=== PATIENT | male | born 1960 | race Caucasian/White ===

== ENCOUNTER 2017-08-20 06:24 | Day surgery (SDC) | payer BC ==
[~2017-08-20 06:24] MED LIST: Buffered Lidocaine 0.9% SYRIN* 5 ML/SYR SYRINGE INTRADERM ONE
[2017-08-20] MEDS ORDERED: ceFAZolin 2 GM in 100 MLS NS (*) BAG IVPB ONE (07:06)
[2017-08-20] MEDS ORDERED: Mineral Oil Sterile, TOPICAL* 25 ML BTL ONE (07:10)
[2017-08-20] MEDS ORDERED: Lidocaine 1% MPF wEPI 200,000* 30 ML SDV ONE (07:10)
[2017-08-20] MEDS ORDERED: Bupivacaine 0.25% SDV* 30 ML ONE (07:22)
[2017-08-20] MEDS ORDERED: fentaNYL* 50 MCG/ML 2 ML VIAL (100 MCG VIAL) ONE (07:35)
[2017-08-20] MEDS ORDERED: Midazolam* 1 MG/ML 5 ML VIAL (5 MG) ONE (07:35)
[2017-08-20] MEDS ORDERED: Propofol* 10 MG/ML 20 ML BTL IV PUSH ONE (07:50)
[2017-08-20] MEDS ORDERED: Lidocaine 2% PF * 5 ML VIAL ONE (07:58)
[2017-08-20] MEDS ORDERED: Naloxone* 0.4 MG/ML 1 ML VIAL IV PRN (08:25)
[2017-08-20] MEDS ORDERED: Midazolam* 1 MG/ML 2 ML VIAL (2 MG) ONE (08:30)
[2017-08-20] MEDS ORDERED: Acetaminophen TAB* 325 MG ONE (09:46)
[2017-08-20 11:04] VITALS: BP 110/60
== END 2017-08-20 11:09 | disposition home or self-care (01) ==
LOC: OR 06:24
PROVIDERS: ATTEND Plastic Surgery
DX: C44.311 Basal cell carcinoma of skin of nose (principal); F17.210 Nicotine dependence, cigarettes, uncomplicated; Z82.49 Family history of ischemic heart disease and other diseases of the circulatory system
CPT/HCPCS: 88305; 88331; 88332; A9270-GY; J2001; J2250; J2704; J3010

== ENCOUNTER 2018-04-04 12:46 | Emergency (ER) | payer BC ==
--- OUTSIDE RECORDS SUMMARY | 2018-04-04 13:06 | XMS REPORT ---
:1960 External Reference #:[id number] [facility] Address [address] [address] Phone [phone] Care Team Providers Name Role Phone Romero Lemos DO Care Team Information Account Group Supervisor Unavailable Payers Type Date Identification Numbers Payment Provider Subscriber Commercial Expires: Policy Number: BCBS Essential Yuri Riggs 2015 [id number] Plan PayID: [id number] [facility] [id number] [address] [id number] Medigap Part B Effective: 2014 Policy Number: BCBS Ppo Yuri Riggs [id number] Expires: 2015 PayID: [id number] [facility] [id number] [address] [phone] Medigap Part B Effective: Policy Number: BCBS Patricia Reyes 2015 [id number] Plan Oneil PayID: [id number] [facility] [id number] [address] [phone] Problems Date Description Provider Status Onset: 11/10/2009 Pulmonary embolism Dante Sylvester MD Active Onset: 10/22/2009 Essential hypertension Dante Sylvester MD Active Onset: 10/22/2009 Tobacco user Dante Sylvester MD Active Onset: 07/15/2014 Pure hypercholesterolemia Active Onset: 07/15/2014 History of polyp of colon Romero Lemos DO Active Family History Date Family Member(s) Problem(s) Comments Children 2 Siblings 2 Social History Type Date Description Comments Marital Status lives with girlfriend Occupation Currently Working [employer] Cigarette Use Current Cigarette Smoker 1 Pack Daily ETOH Use Occasionally consumes alcohol Allergies, Adverse Reactions, Alerts Date Description Reaction Status Severity Comments 07/15/2014 NKDA active Medications Medication Date Status Form Strength Qnty SIG Indications Ordering Provider No Active Active Unknown Medications 018 Amoxicillin Hx Tablets 875mg 20tabs 1 pill Lemos, 018 - by mouth Romero, DO twice a 018 day x 10 days No Active Hx Unknown Medications 016 - 018 Amoxicillin Hx Tablets 875mg 20tabs 1 pill Lemos, 016 - by mouth Romero, DO twice a 016 day x 10 days No Active Hx Unknown Medications 015 - 016 Amoxicillin Hx Tablets 875mg 20tabs 1 pill Lemos, 015 - by mouth Romero, DO twice a 015 day x 10 days No Active Hx Unknown Medications 015 - 015 Sulfamethoxazol Hx Tablets 800-160mg 20tabs 1 by andrae Griffin/Trimethoprim 014 - mouth MD Linda DS twice a 014 day Immunizations CPT Code Status Date Vaccine Lot # [id number] Given 02/11/2013 Pneumococcal 23 Immunization Adult Or Immunosuppressed Patient 08485 Given 02/11/2013 Afluria Or Fluvirin Flu Vac Intramuscular 48529 Given 01/03/2012 Tdap (Adacel) Ages 7 And Above Only [id number] Refused 03/31/2018 Afluria Imunization Vital Signs Date Vital Result Comment 03/31/2018 Weight 236.00 lb Heart Rate 72 /min BP Systolic 140 mmHg BP Diastolic 78 mmHg Respiratory Rate 18 /min Height 73 inches 6'1" (03/2017) BMI (Body Mass Index) 31.1 kg/m2 10/02/2017 Weight 231.00 lb Heart Rate 70 /min BP Systolic 148 mmHg BP Diastolic 84 mmHg Respiratory Rate 18 /min Height 73 inches 6'1" (03/2017) BMI (Body Mass Index) 30.5 kg/m2 04/23/2017 Weight 234.00 lb Heart Rate 76 /min BP Systolic 148 mmHg BP Diastolic 88 mmHg Respiratory Rate 18 /min Height 73 inches 6'1" (03/2017) BMI (Body Mass Index) 30.9 kg/m2 03/29/2017 Weight 227.00 lb Heart Rate 84 /min BP Systolic 138 mmHg BP Diastolic 84 mmHg Respiratory Rate 18 /min Height 73 inches 6'1" (03/2017) BMI (Body Mass Index) 29.9 kg/m2 09/27/2016 Weight 236.00 lb Heart Rate 78 /min BP Systolic 138 mmHg BP Diastolic 74 mmHg Respiratory Rate 18 /min Height 73 inches 6'1" (03/2016) BMI (Body Mass Index) 31.1 kg/m2 03/29/2016 Weight 231.00 lb Heart Rate 84 /min BP Systolic 156 mmHg BP Diastolic 86 mmHg BP Systolic Recheck 146 mmHg BP Diastolic Recheck 86 mmHg Respiratory Rate 18 /min Height 73 inches 6'1" (03/2016) BMI (Body Mass Index) 30.5 kg/m2 09/28/2015 Weight 235.00 lb Heart Rate 68 /min BP Systolic 150 mmHg BP Diastolic 80 mmHg BP Systolic Recheck 132 mmHg BP Diastolic Recheck 80 mmHg Respiratory Rate 18 /min Height 73 inches 6'1" (03/2015) BMI (Body Mass Index) 31.0 kg/m2 03/29/2015 Weight 231.00 lb Heart Rate 68 /min BP Systolic 148 mmHg BP Diastolic 90 mmHg BP Systolic Recheck 132 mmHg BP Diastolic Recheck 80 mmHg Respiratory Rate 18 /min Height 73 inches 6'1" (03/2015) BMI (Body Mass Index) 30.5 kg/m2 07/22/2014 Weight 231.00 lb Heart Rate 74 /min BP Systolic 128 mmHg BP Diastolic 74 mmHg Respiratory Rate 18 /min Height 72.75 inches 6'0.75" BMI (Body Mass Index) 30.7 kg/m2 07/15/2014 Body Temperature 98.1 F Weight 226.00 lb Heart Rate 72 /min BP Systolic 148 mmHg BP Diastolic 80 mmHg Respiratory Rate 18 /min Height 72.75 inches 6'0.75" BMI (Body Mass Index) 30.0 kg/m2 04/06/2014 Body Temperature 98.6 F Weight 229.00 lb Heart Rate 72 /min BP Systolic 140 mmHg BP Diastolic 80 mmHg Respiratory Rate 18 /min Height 72.75 inches 6'0.75" 02/18/2014 Weight 234.00 lb Heart Rate 60 /min BP Systolic 130 mmHg BP Diastolic 84 mmHg Respiratory Rate 18 /min Height 72.75 inches 6'0.75" (02/2014) 05/14/2013 Weight 236.00 lb Heart Rate 66 /min BP Systolic 130 mmHg BP Diastolic 74 mmHg Respiratory Rate 18 /min 05/11/2013 Weight 235.00 lb Heart Rate 72 /min BP Systolic 130 mmHg BP Diastolic 70 mmHg Respiratory Rate 18 /min 02/11/2013 Weight 233.00 lb Heart Rate 80 /min BP Systolic 144 mmHg BP Diastolic 80 mmHg Respiratory Rate 19 /min Height 72.75 inches 6'0.75" (02/2013) 08/01/2012 Weight 233.00 lb Heart Rate 72 /min BP Systolic 148 mmHg BP Diastolic 88 mmHg Respiratory Rate 19 /min Height 72.75 inches 6'0.75" 06/12/2012 Body Temperature 97.0 F Weight 219.31 lb Heart Rate 76 /min BP Systolic 132 mmHg BP Diastolic 80 mmHg Respiratory Rate 18 /min Height 72.75 inches 6'0.75" 01/03/2012 Weight 228.00 lb Heart Rate 72 /min BP Systolic 120 mmHg BP Diastolic 80 mmHg Respiratory Rate 20 /min Height 72.75 inches 6'0.75" 07/06/2011 Weight 235.06 lb Heart Rate 80 /min BP Systolic 134 mmHg BP Diastolic 78 mmHg Respiratory Rate 18 /min Height 72.75 inches 6'0.75" 12/04/2010 Weight 230.00 lb Heart Rate 72 /min BP Systolic 134 mmHg BP Diastolic 80 mmHg Respiratory Rate 20 /min Height 73.75 inches 6'1.75" 05/30/2010 Weight 240.00 lb up 12 lbs Heart Rate 78 /min BP Systolic 154 mmHg BP Diastolic 84 mmHg 11/17/2009 Weight 228.00 lb Heart Rate 80 /min BP Systolic 140 mmHg BP Diastolic 90 mmHg 11/17/2009 Height 73.75 inches 6'1.75" 10/21/2009 Weight 232.00 lb Heart Rate 80 /min BP Systolic 160 mmHg BP Diastolic 100 mmHg Results Test Date Test Result H/L Range Note Basic (BMP) 03/24/2018 Sodium 143 mmol/L 135-146 1 Potassium 4.3 mmol/L 3.5-5.2 Chloride# 107 mmol/L 97-110 2 Carbon Dioxide 26 mmol/L 24-34 Glucose 120 mg/dL High 70-105 BUN 17 mg/dL 6-26 Creatinine 0.9 mg/dL 0.5-1.4 Calcium 9.1 mg/dL 8.5-10.2 Non Akiko Egfr >60 >60 3 Akiko Egfr >60 >60 4 Anion Gap 10 mmol/L 5-15 5 Lipid Treatment 03/24/2018 Cholesterol 166 mg/dL 50-199 Triglycerides 69 mg/dL 30-200 HDL 32 mg/dL 29-71 6 Chol/ HDL Ratio 5.2 ratio 4.0-6.7 VLDL 14 mg/dL 2-29 LDL (Calc) 120 mg/dL High 20-99 7 Alt 28 U/L 3-42 Ast 17 U/L 8-42 CBC With Auto Diff 09/24/2017 WBC 8.1 K/uL 4.1-11.0 RBC 4.96 M/uL 4.60-6.10 Hemoglobin 16.4 gm/dL 13.5-18.0 Hematocrit 48.5 % 41.0-53.0 MCV 97.9 fL High 80.0-97.0 MCH 33.2 pg High 27.0-32.0 MCHC 33.9 g/dL 32.0-36.0 RDW 13.0 % 11.5-14.5 PLT Count 244 K/ul 140-400 MPV 9.0 FL 7.1-10.7 Neutrophil 57.7 % 35.0-75.0 Lymphocyte 28.5 % 16.0-52.0 Monocyte 9.9 % 2.0-10.0 Eosinophil 3.3 % 0.0-5.0 Basophil 0.6 % 0.0-4.0 Abs Neutrophils 4.7 K/uL 2.1-8.0 Abs Lymphocytes 2.3 K/uL 0.8-5.5 Abs Monocytes 0.8 K/uL 0.1-1.0 Abs Eosinophils 0.3 K/uL 0.0-0.5 Abs Basophils 0.0 K/uL 0.0-0.3 Basic (BMP) 09/24/2017 Sodium 137 mmol/L 135-146 8 Potassium 4.9 mmol/L 3.5-5.2 Chloride# 104 mmol/L 97-110 9 Carbon Dioxide 26 mmol/L 24-34 Glucose 118 mg/dL High 70-105 BUN 15 mg/dL 6-26 Creatinine 0.8 mg/dL 0.5-1.4 Calcium 9.4 mg/dL 8.5-10.2 Non Akiko Egfr >60 >60 10 Akiko Egfr >60 >60 11 Anion Gap 7 mmol/L 5-15 12 Laboratory test finding 09/24/2017 TSH 1.67 uIU/mL 0.35-4.94 Lipid Treatment 09/24/2017 Cholesterol 183 mg/dL 50-199 Triglycerides 82 mg/dL 30-200 HDL 33 mg/dL 29- 13 Chol/ HDL Ratio 5.5 ratio 4.0-6.7 VLDL 16 mg/dL 2-29 LDL (Calc) 133 mg/dL High 20-99 14 Alt 23 U/L 3-42 Ast 17 U/L 8-42 Laboratory test finding 09/24/2017 PSA 1.710 ng/mL 0.000-4.000 15 CPK 141 U/L 12-199 Lipid Treatment 03/22/2017 Cholesterol 165 mg/dL 50-199 Triglycerides 115 mg/dL 30-200 HDL 34 mg/dL - 16 Chol/ HDL Ratio 4.9 ratio 4.0-6.7 VLDL 23 mg/dL 2-29 LDL (Calc) 108 mg/dL High 20-99 17 Alt 24 U/L 3-42 Ast 16 U/L 8-42 CBC With Auto Diff 03/22/2017 WBC 8.4 K/uL 4.1-11.0 RBC 4.85 M/uL 4.60-6.10 Hemoglobin 16.2 gm/dL 13.5-18.0 Hematocrit 48.1 % 41.0-53.0 MCV 99.2 fL High 80.0-97.0 MCH 33.5 pg High 27.0-32.0 MCHC 33.7 g/dL 32.0-36.0 RDW 13.0 % 11.5-14.5 PLT Count 247 K/ul 140-400 MPV 9.0 FL 7.1-10.7 Neutrophil 57.4 % 35.0-75.0 Lymphocyte 25.9 % 16.0-52.0 Monocyte 11.6 % High 2.0-10.0 Eosinophil 4.1 % 0.0-5.0 Basophil 1.0 % 0.0-4.0 Abs Neutrophils 4.8 K/uL 2.1-8.0 Abs Lymphocytes 2.2 K/uL 0.8-5.5 Abs Monocytes 1.0 K/uL 0.1-1.0 Abs Eosinophils 0.3 K/uL 0.0-0.5 Abs Basophils 0.1 K/uL 0.0-0.3 Basic ([facility]) 03/22/2017 Sodium 141 mmol/L 135-146 18 Potassium 4.2 mmol/L 3.5-5.2 Chloride# 107 mmol/L 97-110 19 Carbon Dioxide 25 mmol/L 24-34 Glucose 100 mg/dL 70-105 Creatinine 0.9 mg/dL 0.5-1.4 Calcium 9.5 mg/dL 8.5-10.2 Non Akiko Egfr >60 >60 20 Akiko Egfr >60 >60 21 Anion Gap 9 mmol/L 7-16 22 BUN 17 mg/dL 6- Laboratory test finding 03/22/2017 TSH 1.84 uIU/mL 0.35-4.94 Lipid Treatment 09/27/2016 Cholesterol 180 mg/dL 50-199 Triglycerides 71 mg/dL 30-200 HDL 39 mg/dL 29- 23 Chol/ HDL Ratio 4.6 ratio 4.0-6.7 VLDL 14 mg/dL 2-29 LDL (Calc) 127 mg/dL High 20-99 24 Alt 30 U/L 3-42 Ast 24 U/L 8-42 CBC With Auto Diff 09/27/2016 WBC 9.4 K/uL 4.1-11.0 RBC 4.96 M/uL 4.60-6.10 Hemoglobin 16.2 gm/dL 13.5-18.0 Hematocrit 49.1 % 41.0-53.0 MCV 99.0 fL High 80.0-97.0 MCH 32.7 pg High 27.0-32.0 MCHC 33.0 g/dL 32.0-36.0 RDW 12.8 % 11.5-14.5 PLT Count 289 K/ul 140-400 Basic ([facility]) 09/27/2016 Sodium 140 mmol/L 135-146 25 Potassium 4.7 mmol/L 3.5-5.2 Chloride# 105 mmol/L 97-110 26 Carbon Dioxide 29 mmol/L 24-34 Glucose 105 mg/dL 70-105 BUN 15 mg/dL 6-26 Creatinine 0.8 mg/dL 0.5-1.4 Calcium 9.9 mg/dL 8.5-10.2 Non Akiko Egfr >60 >60 27 Akiko Egfr >60 >60 28 Anion Gap 11 mmol/L 7-16 29 Laboratory test finding 09/27/2016 TSH 1.63 uIU/mL 0.35-4.94 PSA 1.720 ng/mL 0.000-4.000 30 Manual Differential 09/27/2016 Neutrophils 52 % 35-75 Lymphocytes 32 % 16-52 Atypical Lymphs 2 0-5 Monocytes 11 % High 0-8 Eosinophils 3 % 0-5 Basophils 0 % 0-4 Platelet Estimate Normal Normal RBC Morphology Normal Normal Abs Neutrophils# 4.9 K/ul 1.8-7.7 Abs Lymphocytes# 3.0 K/ul 1.2-4.8 Abs Monocytes# 1.0 K/ul High 0.0-0.8 Abs Eosinophils# 0.3 K/ul 0.0-0.5 Abs Basophils# 0.0 K/ul 0.0-0.3 Abs Atypical Lymphocytes# 0.2 K/ul 0.0-0.5 Lipid Treatment 03/22/2016 Cholesterol 183 mg/dL 50-199 Triglycerides 92 mg/dL 30-200 HDL 35 mg/dL - 31 Chol/ HDL Ratio 5.2 ratio 4.0-6.7 VLDL 18 mg/dL 2-29 LDL (Calc) 130 mg/dL High 20-99 32 Alt 29 U/L 3-42 Ast 18 U/L 8-42 Basic (BMP) 03/22/2016 Sodium 138 mmol/L 134-142 Potassium 4.5 mmol/L 3.5-5.2 Chloride 106 mmol/L 97-109 Carbon Dioxide 26 mmol/L 24-34 Glucose 119 mg/dL High 70-105 BUN 19 mg/dL 6-26 Creatinine 0.8 mg/dL 0.5-1.4 Calcium 9.7 mg/dL 8.5-10.2 Anion Gap 11 mmol/L 6-14 Non Akiko Egfr >60 >60 33 Akiko Egfr >60 >60 34 Lipid 09/21/2015 Cholesterol 190 mg/dL 50-199 Triglycerides 82 mg/dL 30-200 HDL 36 mg/dL - 35 Chol/ HDL Ratio 5.3 ratio 4.0-6.7 VLDL 16 mg/dL 2-29 LDL (Calc) 138 mg/dL High 20-99 36 CBC With Auto Diff 09/21/2015 WBC 9.8 K/uL 4.1-11.0 RBC 5.06 M/uL 4.60-6.10 Hemoglobin 16.9 gm/dL 13.5-18.0 Hematocrit 50.5 % 41.0-53.0 MCV 99.8 fL High 80.0-97.0 MCH 33.4 pg High 27.0-32.0 MCHC 33.5 g/dL 32.0-36.0 RDW 12.8 % 11.5-14.5 PLT Count 247 K/ul 140-400 Neutrophil 59.4 % 35.0-75.0 Lymphocyte 25.6 % 16.0-52.0 Monocyte 10.3 % High 2.0-10.0 Eosinophil 3.8 % 0.0-5.0 Basophil 0.9 % 0.0-4.0 Abs Neutrophils 5.8 K/uL 2.1-8.0 Abs Lymphocytes 2.5 K/uL 0.8-5.5 Abs Monocytes 1.0 K/uL 0.1-1.0 Abs Eosinophils 0.4 K/uL 0.0-0.5 Abs Basophils 0.1 K/uL 0.0-0.3 Comprehensive Metabolic (CMP) 09/21/2015 Sodium 136 mmol/L 134-142 Potassium 4.9 Specimen Mod <SEE NOTE> mmol/L 3.5-5.2 37 Chloride 106 mmol/L 97-109 Carbon Dioxide 19 Extremely henri <SEE NOTE> mmol/L Low 24-34 38 Glucose 94 mg/dL 70-105 BUN 17 mg/dL 6-26 Creatinine 0.8 mg/dL 0.5-1.4 Calcium 9.5 mg/dL 8.5-10.2 Total Protein 7.3 g/dL 6.0-8.0 Albumin 4.3 g/dL 3.6-4.9 Globulin 3.0 g/dL 2.0-3.5 A/G Ratio 1.4 Ratio 1.0-2.2 Total Bilirubin 0.6 mg/dL 0.1-1.3 Alkaline Phosphatase 50 U/L 24-140 Alt 27 U/L 3-42 Ast 21 U/L 8-42 Anion Gap 16 mmol/L High 6-14 Akiko Egfr >60 >60 39 Non Akiko Egfr >60 >60 40 Laboratory test finding 09/21/2015 PSA 1.670 ng/mL 0.000-4.000 41 Laboratory test finding 07/29/2015 Polyp Colon And/Or See Note 42 Rectum Laboratory test finding 08/18/2014 PSA 1.840 ng/mL 0.000-4.000 43 Comprehensive Metabolic 08/18/2014 Sodium 140 mmol/L 134-142 (CMP) Potassium 4.7 mmol/L 3.5-5.2 Chloride 108 mmol/L 97-109 Carbon Dioxide 25 mmol/L 24-34 Glucose 117 mg/dL High 70-105 BUN 16 mg/dL 6-26 Creatinine 0.8 mg/dL 0.5-1.4 Calcium 9.3 mg/dL 8.5-10.2 Total Protein 6.8 g/dL 6.0-8.0 Albumin 4.2 g/dL 3.6-4.9 Globulin 2.6 g/dL 2.0-3.5 A/G Ratio 1.6 Ratio 1.0-2.2 Total Bilirubin 0.3 mg/dL 0.1-1.3 Alkaline Phosphatase 49 U/L 24-140 Alt 28 U/L 3-42 Ast 19 U/L 8-42 Anion Gap 12 mmol/L 6-14 Akiko Egfr >60 >60 44 Non Akiko Egfr >60 >60 45 Lipid 08/18/2014 Cholesterol 180 mg/dL 50-199 Triglycerides 82 mg/dL 30-200 HDL 35 mg/dL 29-71 46 Chol/ HDL Ratio 5.1 ratio 4.0-6.7 VLDL 16 mg/dL 2-29 LDL (Calc) 129 mg/dL High 20-99 47 PTH,Intact W/ CA -RL 08/18/2014 PTH, Intact @ 22.7 pg/mL (12-65) Calcium @ 9.4 mg/dL (8.4-10.2) 48 Laboratory test finding 07/13/2014 Polyp Colon And/Or Rectum See Note 49 Laboratory test finding 11/13/2013 Alt 26.0 U/L 21.0-72.0 Ast 18.0 U/L 17.0-59.0 Lipid Panel 11/13/2013 Chol/HDL Ratio 5.9 ratio Cholesterol 171.0 mg/dL 50.0-199.0 HDL 29.0 mg/dL 29.0-67.0 LDL, Calculated 128.6 mg/dL 20.0-129.0 Triglycerides 67.0 mg/dL 30.0-249.0 vLDL 13.4 ng/dL Laboratory test finding 03/09/2013 % Baso. 1.5 % 0.0-2.0 % Eos. 4.1 % High 0.0-4.0 % Lymph 25 % 20-44 % [place] 9.8 % 2.0-10.0 % [place] 60 % 50-70 A/G Ratio 1.4 ratio Low 1.6-2.2 Absolute Baso. 0.1 K/ul 0.0-0.3 Absolute Eos. 0.4 K/ul 0.0-0.5 Absolute Lymph. 2.3 K/ul 0.8-4.8 Absolute [place]. 0.9 K/ul 0.1-1.0 Absolute [place]. 5.40 K/ul 2.05-7.63 Albumin 4.4 g/dL 3.5-5.0 Alk. Phos. 60.0 U/L 30.0-126.0 Alt 31.0 U/L 21.0-72.0 Anion Gap 9.0 mmol/L Low 10.0-20.0 Ast 22.0 U/L 17.0-59.0 BUN 17.0 mg/dL 9.0-21.0 BUN/Creat Ratio 17.0 ratio 12.0-20.0 Calcium 10.0 mg/dL 8.7-10.5 Chloride 107.0 mmol/L 98.0-107.0 Co2 24.0 mmol/L 22.0-30.0 Creatinine-Serum 1.0 mg/dL 0.8-1.5 Globulin 3.2 g/dL 2.7-4.3 Glucose 110.0 mg/dL 75.0-110.0 HCT 50.4 % 37.0-51.0 HGB 16.6 Gm/dl High 12.0-16.0 MCH 33.0 pg High 26.0-32.0 MCHC 32.9 g/dL 31.0-36.0 MCV 100.0 Fl High 80.0-97.0 MPV 7.7 fL 6.0-10.0 PLT 313 K/ul 140-440 PSA 2.3 ng/mL 0.0-4.0 Potasium 4.3 mmol/L 3.6-5.0 RBC 5.0 M/ul 4.2-6.3 RDW 11.4 % Low 11.5-14.5 Sodium 140.0 mmil/L 137.0-145.0 TSH 1.51 uIU/ml 0.50-6.00 Total Bilirubin 0.8 mg/dL 0.2-1.3 Total Protein 7.6 g/dL 6.3-8.2 WBC 9.1 K/ul 4.1-10.9 eGFR 83.4 mi/minper1.73 50 Lipid Panel 03/09/2013 Chol/HDL Ratio 5.4 ratio Cholesterol 195.0 mg/dL 50.0-199.0 HDL 36.0 mg/dL 29.0-67.0 LDL, Calculated 145.4 mg/dL High 20.0-129.0 Triglycerides 68.0 mg/dL 30.0-249.0 vLDL 13.6 ng/dL Laboratory test finding 01/03/2012 Absolute Basophils 0.113 K/ul 0.0-0.3 Absolute Eosinophils 0.245 K/ul 0.0-0.5 Absolute Lymphocytes 2.32 K/ul 0.8-4.8 Absolute Monocytes 0.721 K/ul 0.1-1.0 Absolute Neutrophils 4.82 K/ul 2.05-7.63 Anion Gap 15 mmol/L 10-20 BUN 15 mg/dL 9-21 BUN/CR Ratio 15.6 Ratio 12-20 Basophil 1.4 % 0-2 Calcium 9.8 mg/dL 8.7-10.5 Carbon Dioxide 26 mmol/L 22-30 Chloride 104 mmol/L 98-107 Creatinine, Serum 1.0 mg/dL 0.8-1.5 Eosinophil 3.0 % 0-4 Glucose 94 mg/dL 75-110 Hematocrit 49.4 % 37.0-51.0 Hemoglobin 16.1 GM/dl High 12.0-16.0 Lymphocytes 28.2 % 20-44 MCH 32.0 pg 26.0-32.0 MCHC 32.6 g/dL 31.0-36.0 MCV 98 FL High 80-97 Monocytes 8.8 % 2-10.0 Neutrophils 58.6 % 50-70 Platelet Count 292 K/ul 140-440 Potassium 4.4 mmol/L 3.6-5.0 RBC 5.03 M/ul 4.2-6.3 RDW 11.2 % Low 11.5-14.5 Sodium 140 mmol/L 137-145 WBC 8.2 K/ul 4.1-10.9 Lipid Panel 01/03/2012 Chol/HDL Ratio 4.7 51 Cholesterol 195 mg/dL 50-199 HDL Cholesterol 41 mg/dL 29-67 LDL 136 mg/dL High 20-129 Triglycerides 92 mg/dL 30-249 VLDL Cholesterol 18 mg/dL Laboratory test finding 11/13/2010 PSA 2.52 ng/mL 0.00-4.00 52 Protime 06/07/2010 Inr 0.9 0.8-1.2 53, 54 Protime 12.6 s 11.7-15.1 53 Laboratory test finding 06/07/2010 PSA 3.23 ng/mL 0.00-4.00 53 Laboratory test finding 05/30/2010 Urine Amorph Sediment Small Negative Urine Bilirubin - Dipstick Negative Negative Urine Blood Trace Negative Urine Clarity Clear Clear Urine Color Yellow Yellow Urine Glucose - Dipstick Negative mg/dL Negative Urine Ketone Negative mg/dL Negative Urine Leuk Esterase Trace High Negative Urine Nitrite - Dipstick Negative Negative Urine PH 5.5 Low 6.5-7.5 Urine Protein - Dipstick Negative mg/dL Negative Urine RBC 0-2 rbc/hpf 0-7 Urine Specific [place] >=1.030 1.010-1.030 Urine Urobilinogen - Dipstick 0.2 E.U./dL 0.2-1.0 Urine WBC 2-5 wbc/hpf 0-7 Protime 05/09/2010 Inr 1.8 High 0.8-1.2 55 Protime 21.3 s High 11.7-15.1 Protime 04/03/2010 Inr 2.2 High 0.8-1.2 56 Protime 25.9 s High 11.7-15.1 Protime 03/06/2010 Inr 2.5 High 0.8-1.2 57 Protime 28.0 s High 11.7-15.1 Protime 02/07/2010 Inr 1.9 High 0.8-1.2 58 Protime 22.6 s High 11.7-15.1 Protime 01/24/2010 Inr 2.8 High 0.8-1.2 59 Protime 30.9 s High 11.7-15.1 Protime 01/03/2010 Inr 1.8 High 0.8-1.2 60 Protime 21.4 s High 11.7-15.1 Protime 12/20/2009 Inr 3.0 High 0.8-1.2 61 Protime 32.5 s High 11.7-15.1 Protime 12/05/2009 Inr 2.7 High 0.8-1.2 62 Protime 30.6 s High 11.7-15.1 Protime 11/28/2009 Inr 1.9 High 0.8-1.2 63 Protime 22.3 s High 11.7-15.1 Protime 11/21/2009 Inr 1.5 High 0.8-1.2 64 Protime 19.0 s High 11.7-15.1 Protime 11/17/2009 Inr 1.6 High 0.8-1.2 65 Protime 19.3 s High 11.7-15.1 Protime 11/09/2009 Inr 1.7 High 0.8-1.2 66 Protime 20.8 s High 11.7-15.1 Protime 11/02/2009 Inr 1.5 High 0.8-1.2 67 Protime 19.0 s High 11.7-15.1 Protime 10/26/2009 Inr 1.2 0.8-1.2 68 Protime 15.7 s High 11.7-15.1 Laboratory test finding 10/21/2009 Absolute Basophils 0.093 K/ul 0.0-0.3 53 Absolute Eosinophils 0.195 K/ul 0.0-0.5 53 Absolute Lymphocytes 1.73 K/ul 0.8-4.8 53 Absolute Monocytes 0.652 K/ul 0.1-1.0 53 Absolute Neutrophils 3.66 K/ul 2.05-7.63 53 Basophil 1.5 % 0-2 53 Eosinophil 3.1 % 0-4 53 Hematocrit 46.6 % 37.0-51.0 53 Hemoglobin 16.0 GM/dl 12.0-16.0 53 Lymphocytes 27.4 % 20-44 53 MCH 32.4 pg High 26.0-32.0 53 MCHC 34.3 g/dL 31.0-36.0 53 MCV 94 FL 80-97 53 Monocytes 10.3 % High 2-10.0 53 Neutrophils 57.8 % 50-70 53 Platelet Count 339 K/ul 140-440 53 RBC 4.94 M/ul 4.2-6.3 53 RDW 12.0 % 11.5-14.5 53 WBC 6.3 K/ul 4.1-10.9 53 Protime 10/21/2009 Inr 0.9 0.8-1.2 53, 69 Protime 11.9 s 11.7-15.1 53 1 Updated reference range on new analyzer 2 Updated reference range on new analyzer 3 Concerning GFR Guidelines: Normal function or mild renal disease, if clinically at risk: >/=60 mL/min Moderately decreased: 30-59 Severely decreased: 15-29 Renal failure: <15 Glomerular Filtration Rate (GFR) is estimated based on the MDRD equation, which assumes a steady state for creatinine as recommended by the National Kidney Disease Education Program in conjunction with the National Institutes of Health and the National Kidney Foundation. Clinical conditions in which it may be necessary to measure GFR by using clearance methods include extremes of age and body size, severe malnutrition or obesity, diseases of skeletal muscle, paraplegia or quadriplegia, vegetarian diet, rapidly changing kidney function, and calculation of the dose of potentially toxic drugs that are excreted by the kidneys. 4 Concerning GFR Guidelines for Americans: Normal function or mild renal disease, if clinically at risk: >/=60 mL/min Moderately decreased: 30-59 Severely decreased: 15-29 Renal failure: <15 5 Updated Reference Range 6 Per NCEP ATP III Guidelines: Results lower than 40 mg/dL are suggestive of increased risk for coronary artery disease. Results > or=to 60 mg/dL are considered a negative risk factor. 7 Per NCEP ATP III Guidelines: Normal Population <130 Patients with medical conditions: CHD/DM Optimal: <100 Borderline high: 130-159 High: 160-189 Very high: >189 8 Updated reference range on new analyzer 9 Updated reference range on new analyzer 10 Concerning GFR Guidelines: Normal function or mild renal disease, if clinically at risk: >/=60 mL/min Moderately decreased: 30-59 Severely decreased: 15-29 Renal failure: <15 Glomerular Filtration Rate (GFR) is estimated based on the MDRD equation, which assumes a steady state for creatinine as recommended by the National Kidney Disease Education Program in conjunction with the National Institutes of Health and the National Kidney Foundation. Clinical conditions in which it may be necessary to measure GFR by using clearance methods include extremes of age and body size, severe malnutrition or obesity, diseases of skeletal muscle, paraplegia or quadriplegia, vegetarian diet, rapidly changing kidney function, and calculation of the dose of potentially toxic drugs that are excreted by the kidneys. 11 Concerning GFR Guidelines for Americans: Normal function or mild renal disease, if clinically at risk: >/=60 mL/min Moderately decreased: 30-59 Severely decreased: 15-29 Renal failure: <15 12 Updated Reference Range 13 Per NCEP ATP III Guidelines: Results lower than 40 mg/dL are suggestive of increased risk for coronary artery disease. Results > or=to 60 mg/dL are considered a negative risk factor. 14 Per NCEP ATP III Guidelines: Normal Population <130 Patients with medical conditions: CHD/DM Optimal: <100 Borderline high: 130-159 High: 160-189 Very high: >189 15 Beginning 08/05/06 PSA values assayed at [facility] uses chemiluminescence methodology manufactured by [employer] for use on the DXI analyzer. Values obtained with different assay methods or kits can not be used interchangeably. Serum PSA measurement is not an absolute test for malignancy. The PSA value should be used in conjunction with information available from clinical evaluation and other diagnostic procedures. 16 Per NCEP ATP III Guidelines: Results lower than 40 mg/dL are suggestive of increased risk for coronary artery disease. Results > or=to 60 mg/dL are considered a negative risk factor. 17 Per NCEP ATP III Guidelines: Normal Population <130 Patients with medical conditions: CHD/DM Optimal: <100 Borderline high: 130-159 High: 160-189 Very high: >189 18 Updated reference range on new analyzer 19 Updated reference range on new analyzer 20 Concerning GFR Guidelines: Normal function or mild renal disease, if clinically at risk: >/=60 mL/min Moderately decreased: 30-59 Severely decreased: 15-29 Renal failure: <15 Glomerular Filtration Rate (GFR) is estimated based on the MDRD equation, which assumes a steady state for creatinine as recommended by the National Kidney Disease Education Program in conjunction with the National Institutes of Health and the National Kid[employer]. Clinical conditions in which it may be necessary to measure GFR by using clearance methods include extremes of age and body size, severe malnutrition or obesity, diseases of skeletal muscle, paraplegia or quadriplegia, vegetarian diet, rapidly changing kidney function, and calculation of the dose of potentially toxic drugs that are excreted by the kidneys. 21 Concerning GFR Guidelines for Americans: Normal function or mild renal disease, if clinically at risk: >/=60 mL/min Moderately decreased: 30-59 Severely decreased: 15-29 Renal failure: <15 22 Updated reference range on new analyzer 23 Per NCEP ATP III Guidelines: Results lower than 40 mg/dL are suggestive of increased risk for coronary artery disease. Results > or=to 60 mg/dL are considered a negative risk factor. 24 Per NCEP ATP III Guidelines: Normal Population <130 Patients with medical conditions: CHD/DM Optimal: <100 Borderline high: 130-159 High: 160-189 Very high: >189 25 Updated reference range on new analyzer 26 Updated reference range on new analyzer 27 Concerning GFR Guidelines: Normal function or mild renal disease, if clinically at risk: >/=60 mL/min Moderately decreased: 30-59 Severely decreased: 15-29 Renal failure: <15 Glomerular Filtration Rate (GFR) is estimated based on the MDRD equation, which assumes a steady state for creatinine as recommended by the National Kidney Disease Education Program in conjunction with the National Institutes of Health and the National Kidney Foundation. Clinical conditions in which it may be necessary to measure GFR by using clearance methods include extremes of age and body size, severe malnutrition or obesity, diseases of skeletal muscle, paraplegia or quadriplegia, vegetarian diet, rapidly changing kidney function, and calculation of the dose of potentially toxic drugs that are excreted by the kidneys. 28 Concerning GFR Guidelines for Americans: Normal function or mild renal disease, if clinically at risk: >/=60 mL/min Moderately decreased: 30-59 Severely decreased: 15-29 Renal failure: <15 29 Updated reference range on new analyzer 30 Beginning 08/05/06 PSA values assayed at [facility] uses chemiluminescence methodology manufactured by [employer] for use on the DXI analyzer. Values obtained with different assay methods or kits can not be used interchangeably. Serum PSA measurement is not an absolute test for malignancy. The PSA value should be used in conjunction with information available from clinical evaluation and other diagnostic procedures. 31 Per NCEP ATP III Guidelines: Results lower than 40 mg/dL are suggestive of increased risk for coronary artery disease. Results > or=to 60 mg/dL are considered a negative risk factor. 32 Per NCEP ATP III Guidelines: Normal Population <130 Patients with medical conditions: CHD/DM Optimal: <100 Borderline high: 130-159 High: 160-189 Very high: >189 33 Concerning GFR Guidelines: Normal function or mild renal disease, if clinically at risk: >/=60 mL/min Moderately decreased: 30-59 Severely decreased: 15-29 Renal failure: <15 Glomerular Filtration Rate (GFR) is estimated based on the MDRD equation, which assumes a steady state for creatinine as recommended by the National Kidney Disease Education Program in conjunction with the National Institutes of Health and the National Kidney Foundation. Clinical conditions in which it may be necessary to measure GFR by using clearance methods include extremes of age and body size, severe malnutrition or obesity, diseases of skeletal muscle, paraplegia or quadriplegia, vegetarian diet, rapidly changing kidney function, and calculation of the dose of potentially toxic drugs that are excreted by the kidneys. 34 Concerning GFR Guidelines for Americans: Normal function or mild renal disease, if clinically at risk: >/=60 mL/min Moderately decreased: 30-59 Severely decreased: 15-29 Renal failure: <15 35 Per NCEP ATP III Guidelines: Results lower than 40 mg/dL are suggestive of increased risk for coronary artery disease. Results > or=to 60 mg/dL are considered a negative risk factor. 36 Per NCEP ATP III Guidelines: Normal Population <130 Patients with medical conditions: CHD/DM Optimal: <100 Borderline high: 130-159 High: 160-189 Very high: >189 37 4.9 Specimen Moderately Hemolyzed 38 19 Extremely short draw 39 Concerning GFR Guidelines for Americans: Normal function or mild renal disease, if clinically at risk: >/=60 mL/min Moderately decreased: 30-59 Severely decreased: 15-29 Renal failure: <15 40 Concerning GFR Guidelines: Normal function or mild renal disease, if clinically at risk: >/=60 mL/min Moderately decreased: 30-59 Severely decreased: 15-29 Renal failure: <15 Glomerular Filtration Rate (GFR) is estimated based on the MDRD equation, which assumes a steady state for creatinine as recommended by the National Kidney Disease Education Program in conjunction with the National Institutes of Health and the National Kidney Foundation. Clinical conditions in which it may be necessary to measure GFR by using clearance methods include extremes of age and body size, severe malnutrition or obesity, diseases of skeletal muscle, paraplegia or quadriplegia, vegetarian diet, rapidly changing kidney function, and calculation of the dose of potentially toxic drugs that are excreted by the kidneys. 41 Beginning 08/05/06 PSA values assayed at [facility] uses chemiluminescence methodology manufactured by [employer] for use on the DXI analyzer. Values obtained with different assay methods or kits can not be used interchangeably. Serum PSA measurement is not an absolute test for malignancy. The PSA value should be used in conjunction with information available from clinical evaluation and other diagnostic procedures. 42 OPERATION/PROCEDURE Colonoscopy, polypectomy DIAGNOSIS: PART 1: "COLON, ASCENDING, BIOPSY": - TUBULAR ADENOMA. - NO HIGH-GRADE DYSPLASIA OR MALIGNANCY. PART 2: "COLON, RECTUM, BIOPSY": - TUBULAR ADENOMA. - NO HIGH-GRADE DYSPLASIA OR MALIGNANCY. - HYPERPLASTIC POLYP. /clf [id number] GROSS Received in formalin in two properly labeled containers with the patient's name and accession number. Part one is designated, "ASCENDING COLON POLYP, SNARED". The specimen consists of several pieces of soft rao, rubbery tissue measuring 0.8 x 0.6 x 0.4 cm. in aggregate. Submitted entirely, one cassette. Part two is designated, "RECTAL POLYPS". The specimen consists of several pieces of soft rao rubbery tissue measuring 0.6 x 0.6 x 0.4 cm. in aggregate. Submitted entirely, one cassette. /[facility] PRE OPERATIVE DIAGNOSIS History of polyp REVIEW CODE CODE: I Signed Electronically signed Sarah PRESTON MD [id number] 43 Beginning 08/05/06 PSA values assayed at [facility] uses an EIA methodology manufactured by [employer] for use on the DXI analyzer. Values obtained with different assay methods or kits can not be used interchangeably. Serum PSA measurement is not an absolute test for malignancy. The PSA value should be used in conjunction with information available from clinical evaluation and other diagnostic procedures. 44 Concerning GFR Guidelines for Americans: Normal function or mild renal disease, if clinically at risk: >/=60 mL/min Moderately decreased: 30-59 Severely decreased: 15-29 Renal failure: <15 45 Concerning GFR Guidelines: Normal function or mild renal disease, if clinically at risk: >/=60 mL/min Moderately decreased: 30-59 Severely decreased: 15-29 Renal failure: <15 Glomerular Filtration Rate (GFR) is estimated based on the MDRD equation, which assumes a steady state for creatinine as recommended by the National Kidney Disease Education Program in conjunction with the National Institutes of Health and the National Kidney Foundation. Clinical conditions in which it may be necessary to measure GFR by using clearance methods include extremes of age and body size, severe malnutrition or obesity, diseases of skeletal muscle, paraplegia or quadriplegia, vegetarian diet, rapidly changing kidney function, and calculation of the dose of potentially toxic drugs that are excreted by the kidneys. 46 Per NCEP ATP III Guidelines: Results lower than 40 mg/dL are suggestive of increased risk for coronary artery disease. Results > or=to 60 mg/dL are considered a negative risk factor. 47 Per NCEP ATP III Guidelines: Normal Population <130 Patients with medical conditions: CHD/DM Optimal: <100 Borderline high: 130-159 High: 160-189 Very high: >189 48 Unless otherwise specified, testing performed by [facility] [address] [place] [id number] OPERATION/PROCEDURE Colonoscopy DIAGNOSIS: PART 1: "ASCENDING COLON, POLYPECTOMY": SERRATED ADENOMA. PART 2: "TRANSVERSE COLON, POLYPECTOMY": ADENOMATOUS COLONIC MUCOSA, FRAGMENTED WITH TUBULAR ARCHITECTURE. HILLARY/digna GROSS Part 1; "ASCENDING COLON POLYP". The specimen is received in an appropriately labeled container. This contains approximately 1.0 mL of rao colored pieces of soft tissue with blue staining. Submitted in toto within a single cassette. Part 2; "TRANSVERSE COLON POLYP". The specimen is received in an appropriately labeled container. This contains four rounded rao colored pieces of soft tissue measuring up to 0.1-0.4 cm.; filtered and submitted in toto within a single cassette. HILLARY/digna MICROSCOPIC Part 1: Sections show polypoid colonic mucosa with a predominance of serrated glands lined by hyperchromatic, oval nuclei within cells. Part 2: Sections show colonic mucosa with tubular glands lined by columnar cells with elongated and hyperchromatic nuclei. PRE OPERATIVE DIAGNOSIS Screening colon REVIEW CODE CODE: I Signed Electronically signed JHONY MENDOZA MD 07/15/14 1404 50 For -Yemeni patients multiply result by 1.180 51 Normal Range: Male: <4.98 Female: <4.45 52 FASTING schedule for 11/2010 53 FASTING 54 THERAPEUTIC INR RANGE: 2.0 - 3.0 DVT, Pulmonary embolus, prophylaxis against venous thrombosis or systemic embolization in high risk patients. 2.5 - 3.5 Mechanical heart valves 55 THERAPEUTIC INR RANGE: 2.0 - 3.0 DVT, Pulmonary embolus, prophylaxis against venous thrombosis or systemic embolization in high risk patients. 2.5 - 3.5 Mechanical heart valves 56 THERAPEUTIC INR RANGE: 2.0 - 3.0 DVT, Pulmonary embolus, prophylaxis against venous thrombosis or systemic embolization in high risk patients. 2.5 - 3.5 Mechanical heart valves 57 THERAPEUTIC INR RANGE: 2.0 - 3.0 DVT, Pulmonary embolus, prophylaxis against venous thrombosis or systemic embolization in high risk patients. 2.5 - 3.5 Mechanical heart valves 58 THERAPEUTIC INR RANGE: 2.0 - 3.0 DVT, Pulmonary embolus, prophylaxis against venous thrombosis or systemic embolization in high risk patients. 2.5 - 3.5 Mechanical heart valves 59 THERAPEUTIC INR RANGE: 2.0 - 3.0 DVT, Pulmonary embolus, prophylaxis against venous thrombosis or systemic embolization in high risk patients. 2.5 - 3.5 Mechanical heart valves 60 THERAPEUTIC INR RANGE: 2.0 - 3.0 DVT, Pulmonary embolus, prophylaxis against venous thrombosis or systemic embolization in high risk patients. 2.5 - 3.5 Mechanical heart valves 61 THERAPEUTIC INR RANGE: 2.0 - 3.0 DVT, Pulmonary embolus, prophylaxis against venous thrombosis or systemic embolization in high risk patients. 2.5 - 3.5 Mechanical heart valves 62 THERAPEUTIC INR RANGE: 2.0 - 3.0 DVT, Pulmonary embolus, prophylaxis against venous thrombosis or systemic embolization in high risk patients. 2.5 - 3.5 Mechanical heart valves 63 THERAPEUTIC INR RANGE: 2.0 - 3.0 DVT, Pulmonary embolus, prophylaxis against venous thrombosis or systemic embolization in high risk patients. 2.5 - 3.5 Mechanical heart valves 64 THERAPEUTIC INR RANGE: 2.0 - 3.0 DVT, Pulmonary embolus, prophylaxis against venous thrombosis or systemic embolization in high risk patients. 2.5 - 3.5 Mechanical heart valves 65 THERAPEUTIC INR RANGE: 2.0 - 3.0 DVT, Pulmonary embolus, prophylaxis against venous thrombosis or systemic embolization in high risk patients. 2.5 - 3.5 Mechanical heart valves 66 THERAPEUTIC INR RANGE: 2.0 - 3.0 DVT, Pulmonary embolus, prophylaxis against venous thrombosis or systemic embolization in high risk patients. 2.5 - 3.5 Mechanical heart valves 67 THERAPEUTIC INR RANGE: 2.0 - 3.0 DVT, Pulmonary embolus, prophylaxis against venous thrombosis or systemic embolization in high risk patients. 2.5 - 3.5 Mechanical heart valves 68 THERAPEUTIC INR RANGE: 2.0 - 3.0 DVT, Pulmonary embolus, prophylaxis against venous thrombosis or systemic embolization in high risk patients. 2.5 - 3.5 Mechanical heart valves 69 THERAPEUTIC INR RANGE: 2.0 - 3.0 DVT, Pulmonary embolus, prophylaxis against venous thrombosis or systemic embolization in high risk patients. 2.5 - 3.5 Mechanical heart valves Procedures Date CPT Code Description Status Comment 10/02/2017 30052 Destruction Benign Lesions Completed Other Than Skin Tags Up To 14 Lesions 04/23/2017 64410 X-Ray Shoulder Complete Completed 07/13/2014 Colonoscopy Completed Document: 07/13/14 - Colonoscopy 02/11/2013 93711 Screening Hearing Test Completed 07/06/2011 42261 Destruction Benign Lesions Completed Other Than Skin Tags Up To 14 Lesions Encounters Type Date Location Provider CPT E/M Dx Office Visit 10/02/2017 10:15a [place] [address] I10 R25.2 E78.2 M54.5 Z86.010 Z85.820 F17.210 E66.09 S69.91xD B07.0 Z68.30 Office Visit 04/23/2017 9:30[place] [address] M25.511 Office Visit 03/29/2017 10:15[place] [address] I10 E78.2 Z12.5 M54.5 Z86.010 Z85.820 F17.210 I26.99 E66.09 S69.91xD R25.2 Office Visit 09/27/2016 9:45[place] [address] E78.2 M54.5 Z86.010 Z85.820 F17.210 I26.99 E66.09 S69.91xD I10 Z12.5 Office Visit 03/29/2016 9:00a [place] [address] Z00.01 E78.2 M54.5 Z86.010 Z85.820 F17.210 I26.99 E66.09 S69.91xD J04.0 I10 L60.0 Z12.5 Office Visit 09/28/2015 10:00a [place] [address] M54.5 Z86.010 Z85.820 F17.210 I26.99 E66.09 S69.91xD E78.2 Office Visit 03/29/2015 11:00a [place] [address] M54.2 M54.5 Z86.010 E78.2 Z12.5 Z00.00 Z85.820 F17.210 I26.99 E66.09 S69.91xD Office Visit 07/22/2014 1:45p [place] [address] 724.2 789.04 608.9 V12.72 593.89 Office Visit 07/15/2014 3:15p [facility] [place] [address] 789.04 608.9 V12.72 Plan of Care Future Appointment(s):09/22/2018 8:55 am - Schedule, Laboratory at [facility]2018 10:15 am - Romero Lemos DO at [facility]03/31/2018 - Romero Lemos, DOI10 Essential (primary) hypertensionNew Labs:CBC with Auto Diff-fcmgBasic (BMP) TSHLipid TreatmentFollow up:Get fasting lab work done in 6 months, then see me a few days later. Schedule stress test.R25.2 Cramp and wffhrT61.09 Other obesity due to excess xvrgwcugO31.5 Low back painE78.2 Mixed stfozfnvdsfxkpQ54.210 Nicotine dependence, cigarettes, qrvyshnvndpwvS92.010 Personal history of colonic eebienV71.91xD Unsp injury of RIGHT wrist, hand and finger(s), subs kmhocnA54.820 Personal history of malignant melanoma of skinR07.9 Chest pain, unspecifiedNew Orders:Echocardiogram, Exercise GadyjeJ90.5 Encounter for screening for malignant neoplasm of prostateNew Labs: PSAR73.01 Impaired fasting glucoseNew Labs:Hemoglobin A1cZ68.31 Body mass index (BMI) 31.0-31.9, adult
[2018-04-04 14:06] VITALS: BP 155/67
[2018-04-04] MEDS ORDERED: Lidocaine 2% W/EPI 1:100,000* 20 ML MDV INJ ONE (14:33)
--- NOTE | 2018-04-04 14:37 | UC ---
Elbow Pain - HPI Summary HPI Summary: The patient is a 57-year-old male that presents here for evaluation of left elbow pain redness and swelling. The swelling is over the point of his elbow. He does not recall any trauma to the elbow. He has never had MRSA. He is right handed. He denies being a diabetic. He has not had a fever. - History of Current Complaint Chief Complaint: UCUpperExtremity Stated Complaint: LEFT ELBOW COMPLAINT Time Seen by Provider: 04/04/18 14:24 Hx Obtained From: Patient Onset/Duration: Days Severity Initially: Mild Severity Currently: Severe Pain Intensity: 8 Pain Scale Used: 0-10 Numeric Location Of Pain: Is Discrete @ Character: Aching Aggravating Factor(s): Movement, Other - touch Alleviating Factor(s): Rest Associated Signs And Symptoms: Positive: Swelling, Redness Body - Head: 1 - red/swollen/warm, skin intact - Allergies/Home Medications Allergies/Adverse Reactions: Allergies Allergy/AdvReac Type Severity Reaction Status Date / Time No Known Allergies Allergy Verified 04/04/18 14:00 Home Medications: Home Medications Ibuprofen TAB* [Advil TAB*] 200 mg PO Q6H PRN 04/04/18 [History Confirmed ] PMH/Surg Hx/FS Hx/Imm Hx Previously Healthy: Yes - Surgical History Surgical History: Yes Surgery Procedure, Year, and Place: gallbladder 25 yrs ago, [facility]. right shoulder, 30 yrs ago, [facility] cancer. right hand, several surgerys for repair, 21 yrs ago - Family History Known Family History: Positive: Hypertension - Social History Alcohol Use: Occasionally Alcohol Amount: 3 per week Substance Use Type: None Smoking Status (MU): Heavy Every Day Tobacco Smoker Type: Cigarettes Amount Used/How Often: pack a day for 30 yrs Review of Systems Constitutional: Negative Skin: Negative Eyes: Negative ENT: Negative Respiratory: Negative Cardiovascular: Negative Gastrointestinal: Negative Genitourinary: Negative Motor: Negative Neurovascular: Negative Musculoskeletal: Negative Neurological: Negative Psychological: Negative All Other Systems Reviewed And Are Negative: Yes Physical Exam Triage Information Reviewed: Yes Appearance: Well-Appearing, No Pain Distress, Well-Nourished Vital Signs: Initial Vital Signs Temp 98.1 F 04/04/18 14:01 Pulse 71 04/04/18 14:01 Resp 15 04/04/18 14:01 BP 155/67 04/04/18 14:01 Pulse Ox 98 04/04/18 14:01 Eyes: Positive: Conjunctiva Clear ENT: Positive: Hearing grossly normal, Uvula midline. Negative: Nasal congestion, Nasal drainage, Tonsillar swelling, Tonsillar exudate, Dental tenderness, Sinus tenderness Neck: Positive: Supple Respiratory: Positive: Lungs clear, Normal breath sounds, No respiratory distress, No accessory muscle use Cardiovascular: Positive: RRR, No Murmur Abdominal Exam: Normal Bowel Sounds: Positive: Present Male Genital Exam: Positive: No Hernia Musculoskeletal: Positive: ROM Intact - left elbow, Edema @ - over olecranon/ red and warm Neurological: Positive: Alert Psychological Exam: Normal Procedures - Procedure Summary Procedure Summary: PROCEDURE: aspiration of left olecranon bursa permit explained/questions answered/patient anticipated needing fluid drained Time Out sterile prep anesth with 1 cc lidocaine with epi 7 cc clear/yellow fluid aspirated and sent to lab for C&S dressing and kenny wrap applied Elbow Pain Course/Dx - Differential Dx/Diagnosis Provider Diagnoses: left olecranon bursitis Discharge - Sign-Out/Discharge Documenting (check all that apply): Patient Departure All imaging exams completed and their final reports reviewed: No Studies - Discharge Plan Condition: Stable Disposition: HOME Prescriptions: DOXYcycline CAP(*) [DOXYcycline 100MG CAP(*)] 100 mg PO BID #14 cap Patient Education Materials: Elbow Bursitis (ED) Referrals: Romero Lemos DO [Primary Care Provider] - 1 Week (your BP was a little high here and needs rechecking your elbow should be rechecked prior to going to the [facility] Additional Instructions: remove kenny wrap tonight before bed try to baby elbow....don't bump it or rest it on a hard surface a culture is pending ADVIL 3 pills 4x day with food for pain - Billing Disposition and Condition Condition: STABLE Disposition: Home
--- NOTE | 2018-04-06 08:23 | UC ---
- Progress Note Progress Note: Left olecranon bursitis drainage fluid Preliminary culture with MRSA negative, staph aureus positive Patient on doxycycline Await final sensitivity No change Discharge - Sign-Out/Discharge Documenting (check all that apply): Post-Discharge Follow Up All imaging exams completed and their final reports reviewed: No Studies - Discharge Plan Condition: Stable Disposition: HOME Prescriptions: DOXYcycline CAP(*) [DOXYcycline 100MG CAP(*)] 100 mg PO BID #14 cap Patient Education Materials: Elbow Bursitis (ED) Referrals: Romero Lemos DO [Primary Care Provider] - 1 Week (your BP was a little high here and needs rechecking your elbow should be rechecked prior to going to the [facility] Additional Instructions: remove kenny wrap tonight before bed try to baby elbow....don't bump it or rest it on a hard surface a culture is pending ADVIL 3 pills 4x day with food for pain - Billing Disposition and Condition Condition: STABLE Disposition: Home
== END 2018-04-04 15:16 | disposition home or self-care (01) ==
LOC: UCCORT 12:46
DX: M70.22 Olecranon bursitis, left elbow (principal); F17.210 Nicotine dependence, cigarettes, uncomplicated
CPT/HCPCS: 20605; 87070; 87077; 87186; 87205; 87640; 87641; 99212; G0463

== ENCOUNTER → 2019-04-10 09:55 | Day surgery (SDC) | payer OTHER ==
[~2019-04-10 09:55] MED LIST changes: -Buffered Lidocaine 0.9% SYRIN* 5 ML/SYR SYRINGE INTRADERM ONE; +Clopidogrel TAB* 300 MG ONE; +Heparin 2 UNITS/ML IVPREMIX* 2,000 ML IV ONE; +Heparin(*) 1000 UNIT/ML 10 ML VIAL CATH LAB IV ONE; +Iohexol 350 (CONTRAST) 200 ML MDV IV ONE; +LORazepam TAB(*) 1 MG ONE; +Lidocaine 1% INJ* 10 MG/ML 30 ML SDV ONE; +Midazolam* 1 MG/ML 5 ML VIAL (5 MG) ONE; +ceFAZolin 1 GM in Dextrose (*) 1 GM/50 ML BAG IVPB ONE; +fentaNYL* 50 MCG/ML 2 ML VIAL (100 MCG VIAL) ONE
[2019-04-10 17:25] VITALS: BP 128/75
--- NOTE | 2019-04-10 17:29 | PN ---
Progress Note - Progress Note Date of Service: 04/10/19 SOAP: Subjective: Patient "feels good". No pain complaints in pelvis, left groin or left leg. Specifically patients states that the usual leg pain he gets laying flat has resolved and he has no leg pain with walking now. Denies CP or SOB. No nausea. Objective: Selected Entries 04/10/19 15:45 Pulse Rate 64 Heart Rate 64 Respiratory 19 Rate Blood Pressure 116/74 (mmHg) Blood Pressure 85 Mean O2 Sat by Pulse 96 Oximetry NAD, AAO x 3 Left groin is soft, nontender Dressing with small amount of dry blood unchanged x 1.5 hours. 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 Patient reports resolution of left leg claudication and rest pain. Plan: 1. ASA 81 mg PO daily for life. 2. Plavix 75 mg PO daily x 6 months. 3. Recommend patient start statin therapy. 4. Patient encouraged to quit smoking and informed that smoking drastically increases the likelihood of stent failure. 5. Routine Interventional Radiology follow will include clinic RN call Saturday and OUMOU and office visit in 1 month.
== END | disposition home or self-care (01) ==
LOC: CHICATH 09:55
PROVIDERS: ATTEND Radiology Diagnostic Radiology
DX: I70.222 Atherosclerosis of native arteries of extremities with rest pain, left leg (principal); F17.210 Nicotine dependence, cigarettes, uncomplicated; Z85.828 Personal history of other malignant neoplasm of skin; E78.00 Pure hypercholesterolemia, unspecified; I10 Essential (primary) hypertension; Z86.711 Personal history of pulmonary embolism; Z86.010 Personal history of colon polyps; M54.5 Low back pain; E78.2 Mixed hyperlipidemia; R73.01 Impaired fasting glucose
CPT/HCPCS: 37252; 76937; 85347; 99156; 99157; A9270-GY; C1725; C1753; C1760; C1769; C1874; C1887; C1894; J0690; J1644; J2250; J3010